=== PATIENT | female | born 1965 | race Caucasian/White ===

== ENCOUNTER → 2017-07-11 | Outpatient (CLI) | payer OTHER ==
--- NOTE | 2017-07-14 07:24 | MM ---
Reason for exam: screening (asymptomatic). Last mammogram was performed 1 year and 6 months ago. History: Patient has history of other cancer at age 47. Family history of premenopausal breast cancer in paternal cousin at age 36. Took hormonal contraceptives for 9 years beginning at age 20. Physical Findings: A clinical breast exam by your physician is recommended on an annual basis and results should be correlated with mammographic findings. MG Screening Mammo w CAD Bilateral CC and MLO view(s) were taken. Prior study comparison: January 01, 2016, bilateral MG screening mammo w CAD. October 10, 2014, bilateral MG screening mammo w CAD. There are scattered fibroglandular densities. There is no discrete abnormality. No significant changes when compared with prior studies. ASSESSMENT: Negative, BI-RAD 1 RECOMMENDATION: Routine screening mammogram of both breasts in 1 year.
== END | disposition home or self-care (01) ==
LOC: RADMAMWWP 09:05
PROVIDERS: ATTEND Obstetrics & Gynecology
DX: Z12.31 Encounter for screening mammogram for malignant neoplasm of breast (principal)

== ENCOUNTER → 2018-08-14 | Outpatient (CLI) | payer BC ==
[2018-08-14 09:33] LABS: HCT 43.5 % (34.0-46.0); HGB 14.3 gm/dL (11.4-16.0); MCHC 32.8 g/dL (31.0-37.0); MCV 97.6 fL (80.0-100.0); Mean Platelet Volume 6.1; Platelet Count 311 k/uL (150-450); RBC 4.46 m/uL (3.80-5.40); RDW 12.6 % (11.5-15.5); WBC 5.5 k/uL (3.8-10.6)
== END ==
LOC: LABWHC1 08:52
PROVIDERS: ATTEND Obstetrics & Gynecology
DX: E78.5 Hyperlipidemia, unspecified (principal)
CPT/HCPCS: 36415; 80061; 82947; 84439; 84443; 85027

== ENCOUNTER → 2019-02-04 | Outpatient (CLI) | payer BC ==
--- NOTE | 2019-02-04 09:32 | BD ---
EXAMINATION TYPE: Axial Bone Density DATE OF EXAM: 02/04/2019 COMPARISON: NONE CLINICAL HISTORY: Height: 5 FT 4 IN Weight: 180 FRAX RISK QUESTIONS: RISK FACTORS HISTORY OF: Active: YES Postmenopausal woman: AGE 51 MEDICATIONS: Additional Medications: OTC NEEDED Additional History: EXAM MEASUREMENTS: Bone mineral densitometry was performed using the Managed Methods System. Bone mineral density as measured about the Lumbar spine is: ----- L1-L4(G/cm2): 1.303 T Score Values are as follows: ----- L2: 0.6 ----- L3: 1.0 ----- L4: 1.7 ----- L1-L4: 1.0 BASELINE Bone mineral density about the R hip (g/cm2): 1.031 Bone mineral density about the L hip (g/cm2): 0.952 T Score values are as follows: -----R Neck: 0.0 -----L Neck: -0.6 -----R Total: 0.7 -----L Total: 0.0 BASELINE IMPRESSION: Normal (Values between +1 and -1 indicate normal bone mass). Consider repeating this study in 5 year s or sooner if there is some new clinical indication. NOTE: T-SCORE=SD OF THE YOUNG ADULT MEAN.
--- NOTE | 2019-02-05 11:12 | MM ---
Reason for exam: screening (asymptomatic). Last mammogram was performed 1 year and 7 months ago. History: Patient is postmenopausal and has history of other cancer at age 47. Family history of premenopausal breast cancer in paternal cousin at age 36. Took hormonal contraceptives for 9 years beginning at age 20. Physical Findings: A clinical breast exam by your physician is recommended on an annual basis and results should be correlated with mammographic findings. MG Screening Mammo w CAD Bilateral CC and MLO view(s) were taken. Prior study comparison: July 11, 2017, bilateral MG screening mammo w CAD. January 01, 2016, bilateral MG screening mammo w CAD. The breast tissue is heterogeneously dense. This may lower the sensitivity of mammography. No significant changes when compared with prior studies. ASSESSMENT: Negative, BI-RAD 1 RECOMMENDATION: Routine screening mammogram of both breasts in 1 year.
== END | disposition home or self-care (01) ==
LOC: RADMAMWWP 08:18
PROVIDERS: ATTEND Obstetrics & Gynecology
DX: Z12.31 Encounter for screening mammogram for malignant neoplasm of breast (principal); Z13.820 Encounter for screening for osteoporosis
CPT/HCPCS: 77067; 77080

== ENCOUNTER → 2019-10-28 | Outpatient (CLI) | payer BC ==
[2019-10-28 08:52] LABS: HGB 14.3 gm/dL (11.4-16.0); MCH 33.6 pg (25.0-35.0); MCHC 34.9 g/dL (31.0-37.0); MCV 96.5 fL (80.0-100.0); Mean Platelet Volume 6.7; Platelet Count 326 k/uL (150-450); RBC 4.25 m/uL (3.80-5.40); RDW 12.6 % (11.5-15.5); WBC 6.1 k/uL (3.8-10.6)
[2019-10-28 09:02] LABS: Appearance,Urine Clear (Clear); Bilirubin,Urine Negative (Negative); Blood,Urine Moderate (Negative); Color,Urine Yellow; Glucose,Urine (UA) Negative (Negative); Hyaline Casts,Urine 3 /lpf (0-2); Ketones,Urine Negative (Negative); Leukocyte Esterase,Urine Negative (Negative); Mucus,Urine Rare /hpf; Nitrite,Urine Negative (Negative); Protein,Urine Negative (Negative); RBC,Urine 1 /hpf (0-5); Specific Gravity,Urine 1.019 (1.001-1.035); Squamous Epithelial Cell,Urine 1 /hpf (0-4); Urobilinogen,Urine <2.0 mg/dL (<2.0); WBC,Urine 1 /hpf (0-5)
[2019-10-28 09:45] LABS: Erythrocyte Sedimentation Rate 14 mm/hr (0-20)
[2019-10-28 16:01] LABS: African American GFR (CKD) 122.3 (60.0-200.0); Albumin 4.7 g/dL (3.80-4.90); Albumin/Globulin Ratio 1.88 (1.60-3.17); Anion Gap 8.6 mmol/L (4.00-12.00); BUN/Creat Ratio 21.67 Ratio (12.00-20.00); Calcium 9.4 mg/dL (8.7-10.3); Carbon Dioxide 25.4 mmol/L (21.6-31.8); Chol/HDL Ratio 2.83; Globulin 2.5 g/dL (1.6-3.3); Non-African American GFR(CKD) 105.5 (60.0-200.0); Potassium 4.8 mmol/L (3.5-5.5); Total Bilirubin 0.6 mg/dL (0.3-1.2); Total Protein 7.2 g/dL (6.2-8.2)
[2019-10-28 16:10] LABS: T4, Free (Free Thyroxine) 1.2 ng/dL (0.80-1.80)
[2019-10-28 16:30] LABS: Anti-Smith Ab Interp NEGATIVE (NEGATIVE)
== END | disposition home or self-care (01) ==
LOC: LABWHC1 07:40
PROVIDERS: ATTEND Physician Assistant
DX: Z00.00 Encounter for general adult medical examination without abnormal findings (principal); R53.83 Other fatigue; L28.0 Lichen simplex chronicus; L30.1 Dyshidrosis [pompholyx]; D22.5 Melanocytic nevi of trunk; L82.1 Other seborrheic keratosis; B35.3 Tinea pedis; D22.72 Melanocytic nevi of left lower limb, including hip; I73.00 Raynaud's syndrome without gangrene; Z71.89 Other specified counseling; Z13.220 Encounter for screening for lipoid disorders
CPT/HCPCS: 36415; 80053; 80061; 81001; 82306; 84439; 84443; 85027; 85652; 86038; 86235

== ENCOUNTER → 2020-08-22 | Outpatient (CLI) | payer BC ==
--- NOTE | 2020-08-23 11:10 | ECHOF ---
Referral Reason:Z82.49 Family hx of ischemic heart disease/murmur MEASUREMENTS -------- HEIGHT: 162.6 cm WEIGHT: 80.7 kg BP: RVIDd: 2.8 cm (< 3.3) IVSd: 1.1 cm (0.6 - 1.1) LVIDd: 4.6 cm (3.9 - 5.3) LVPWd: 0.7 cm (0.6 - 1.1) IVSs: 1.3 cm LVIDs: 3.2 cm LVPWs: 1.2 cm LA Diam: 3.2 cm (2.7 - 3.8) LAESV Index (A-L): 27.47 ml/m Ao Diam: 2.6 cm (2.0 - 3.7) AV Cusp: 2.0 cm (1.5 - 2.6) MV EXCURSION: 17.007 mm (> 18.000) MV EF SLOPE: 112 mm/s (70 - 150) EPSS: 0.4 cm MV E Twin: 0.89 m/s MV DecT: 135 ms MV A Twin: 0.66 m/s MV E/A Ratio: 1.36 RAP: 5.00 mmHg RVSP: 16.78 mmHg FINDINGS -------- Sinus rhythm. This was a technically good study. LV size, wall thickness and systolic function are normal, with an EF greater than 55%. The left richelle tricular size is normal. The right ventricle is normal in size. The left atrial size is normal. Normal LA size by volume 22+/-6 ml/m2. The right atrial size is normal. The aortic valve is trileaflet, and appears structurally normal. No aortic stenosis or regurgitation. Mild mitral regurgitation is present. Mild tricuspid regurgitation present. Right ventricular systolic pressure is normal at < 35 mmHg. There is no pulmonic regurgitation present. The aortic root size is normal. There is no pericardial effusion. CONCLUSIONS -------- 1. LV size, wall thickness and systolic function are normal, with an EF greater than 55%. 2. The left ventricular size is normal. 3. The right ventricle is normal in size. 4. The left atrial size is normal. 5. Normal LA size by volume 22+/-6 ml/m2. 6. The right atrial size is normal. 7. Mild mitral regurgitation is present. 8. Mild tricuspid regurgitation present. 9. There is no pulmonic regurgitation present. 10. The aortic root size is normal. 11. There is no pericardial effusion. COVERER: Nuvia Villa RDCS
== END | disposition home or self-care (01) ==
LOC: RADECHMAIN 15:14
PROVIDERS: ATTEND Internal Medicine
DX: Z13.6 Encounter for screening for cardiovascular disorders (principal); I08.1 Rheumatic disorders of both mitral and tricuspid valves; Z82.49 Family history of ischemic heart disease and other diseases of the circulatory system
CPT/HCPCS: 93306

== ENCOUNTER → 2020-08-23 | Outpatient (CLI) | payer BC ==
--- NOTE | 2020-08-28 13:33 | MM ---
Reason for exam: screening (asymptomatic). Last mammogram was performed 1 year and 7 months ago. History: Patient is postmenopausal and has history of other cancer at age 47. Family history of premenopausal breast cancer in paternal cousin at age 36 and breast cancer in sister at age 55. Took hormonal contraceptives for 9 years beginning at age 20. Physical Findings: A clinical breast exam by your physician is recommended on an annual basis and results should be correlated with mammographic findings. MG Screening Mammo w CAD Bilateral CC and MLO view(s) were taken. Prior study comparison: February 04, 2019, bilateral MG screening mammo w CAD. July 11, 2017, bilateral MG screening mammo w CAD. The breast tissue is heterogeneously dense. This may lower the sensitivity of mammography. There is no discrete abnormality. ASSESSMENT: Negative, BI-RAD 1 RECOMMENDATION: Routine screening mammogram of both breasts in 1 year.
== END | disposition home or self-care (01) ==
LOC: RADMAMWWP 12:26
PROVIDERS: ATTEND Obstetrics & Gynecology
DX: Z12.31 Encounter for screening mammogram for malignant neoplasm of breast (principal)
CPT/HCPCS: 77067

== ENCOUNTER → 2022-04-03 | Outpatient (CLI) | payer BC ==
--- NOTE | 2022-04-04 10:44 | MM ---
Reason for Exam: Screening (asymptomatic). Last mammogram was performed 1 year(s) and 8 month(s) ago. Patient History: Menarche at age 17. First Full-Term at age 30. Postmenopausal. Other cancer, age 47. Hormonal Contraceptives for 9 years from age 20 until age 29. Paternal cousin had breast cancer, age 36. Sister had breast cancer, age 55. Risk Values: [place] 5 year model risk: 2.0%. NCI Lifetime model risk: 14.5%. Prior Study Comparison: 07/11/2017 Bilateral Screening Mammogram, [facility]. 02/04/2019 Bilateral Screening Mammogram, [facility]. 08/23/2020 Bilateral Screening Mammogram, [facility]. Tissue Density: The breast tissue is heterogeneously dense. This may lower the sensitivity of mammography. Findings: Analyzed By CAD. Benign-appearing right axillary lymph nodes are redemonstrated. There is no suspicious group of microcalcifications or new suspicious mass in either breast. Overall Assessment: Negative, BI-RAD 1 Management: Screening Mammogram of both breasts in 1 year. A clinical breast exam by your physician is recommended on an annual basis and results should be correlated with mammographic findings. Electronically signed and approved by: Germain Devine M.D.
== END | disposition home or self-care (01) ==
LOC: RADMAMWWP 07:52
PROVIDERS: ATTEND Obstetrics & Gynecology
DX: Z12.31 Encounter for screening mammogram for malignant neoplasm of breast (principal); Z78.0 Asymptomatic menopausal state; Z80.3 Family history of malignant neoplasm of breast
CPT/HCPCS: 77067

== ENCOUNTER 2022-05-15 08:12 | Day surgery (SDC) | payer BC ==
[2022-05-10 11:41] VITALS: BMI 31.6
[~2022-05-15 08:12] MED LIST: LACTATED RINGERS 1,000 ML IV SCH
[2022-05-15 09:03] VITALS: TEMP 97.8
[2022-05-15] MEDS ORDERED: PROPOFOL 10 MG/ML 20 ML VIAL IV ONE (09:34)
--- NOTE | 2022-05-15 09:52 | P.PCN ---
Date of Procedure: 05/15/22 Procedure(s) Performed: BRIEF HISTORY: Patient is a 56-year-old pleasant white female scheduled for an elective colonoscopy as a part of evaluation of prior history of colon polyps PROCEDURE PERFORMED: Colonoscopy. PREOPERATIVE DIAGNOSIS: History of colon polyps. IV sedation per Anesthesia. PROCEDURE: After informed consent was obtained, the patient, was brought into the endoscopy unit. IV sedation was administered by Anesthesia under continuous monitoring. Digital rectal examination was normal. Initially the Olympus CF-160 flexible video colonoscope was then inserted in the rectum, gradually advanced into the cecum without any difficulty. Careful examination was performed as the scope was gradually being withdrawn. Ileocecal valve and the appendiceal orifice were visualized and appeared normal. Prep was excellent. Mucosa of the cecum, ascending colon, transverse colon, appeared normal. In the descending colon there was a 6 minute a polyp removed by snare polypectomy. Rest of the descending colon, sigmoid colon, and rectum appeared normal. In the rectum there was a 3 mm polyp removed by snare polypectomy. Scattered sigmoid diverticulosis seen. Retroflexion was performed in the rectum and no lesions were seen. The patient tolerated the procedure well. IMPRESSION: 6 mm descending colon polyp status post polypectomy 3 mm rectal polyp status post polypectomy Scattered sigmoid diverticulosis RECOMMENDATIONS: Findings of this examination were discussed with the patient as well as her family. She was advised to follow with the biopsy results. If the biopsy results adenoma she can have a repeat colonoscopy in 5 years.
[2022-05-15 10:15] VITALS: RESP 20
[2022-05-15 10:19] VITALS: BP 174/81; PULSE 53
== END 2022-05-15 10:38 | disposition home or self-care (01) ==
LOC: ORWHC2ENDO 08:12
PROVIDERS: ATTEND Internal Medicine Gastroenterology
DX: Z12.11 Encounter for screening for malignant neoplasm of colon (principal); K62.1 Rectal polyp; K63.5 Polyp of colon; K57.30 Diverticulosis of large intestine without perforation or abscess without bleeding; Z86.010 Personal history of colon polyps; I10 Essential (primary) hypertension; J45.909 Unspecified asthma, uncomplicated; M19.90 Unspecified osteoarthritis, unspecified site; Z87.891 Personal history of nicotine dependence
CPT/HCPCS: 88305; 45385; J2704

== ENCOUNTER → 2023-06-30 | Outpatient (CLI) | payer BC ==
--- NOTE | 2023-07-01 10:45 | MM ---
Reason for Exam: Screening (asymptomatic). Last mammogram was performed 1 year(s) and 2 month(s) ago. Patient History: Menarche at age 17. First Full-Term at age 30. Postmenopausal. Other cancer, age 47. Hormonal Contraceptives for 9 years from age 20 until age 29. Paternal cousin had breast cancer, age 36. Sister had breast cancer, age 55. Risk Values: Catarina 5 year model risk: 2.1%. NCI Lifetime model risk: 14.2%. Prior Study Comparison: 02/04/2019 Bilateral Screening Mammogram, [facility]. 08/23/2020 Bilateral Screening Mammogram, [facility]. 04/03/2022 Bilateral MG screening mammo w CAD, [facility]. Tissue Density: The breast tissue is heterogeneously dense. This may lower the sensitivity of mammography. Findings: Analyzed By CAD. There is no suspicious group of microcalcifications or new suspicious mass in either breast. Overall Assessment: Negative, BI-RAD 1 Management: Screening Mammogram of both breasts in [address] [facility] will attempt to contact patient to return for supplemental views and ultrasound if indicated. Patient should continue monthly self-breast exams. A clinical breast exam by your physician is recommended on an annual basis. This exam should not preclude additional follow-up of suspicious palpable abnormalities. Note on Catarina scores and lifetime risk: 1. A Catarina score greater than 3% is considered moderate risk. If this is the case, consider specialist referral to assess eligibility for a risk reducing agent. 2. If overall lifetime risk for the development of breast cancer is 20% or higher, the patient may qualify for future screening with alternating mammogram and breast MRI. Electronically signed and approved by: Sai Layton DO
== END | disposition home or self-care (01) ==
LOC: RADMAMWWP 08:39
PROVIDERS: ATTEND Obstetrics & Gynecology
DX: Z12.31 Encounter for screening mammogram for malignant neoplasm of breast (principal); Z78.0 Asymptomatic menopausal state; Z80.3 Family history of malignant neoplasm of breast
CPT/HCPCS: 77063; 77067

== ENCOUNTER → 2024-08-23 | Outpatient (CLI) | payer BC ==
--- NOTE | 2024-08-23 16:20 | BD ---
EXAMINATION TYPE: Axial Bone Density DATE OF EXAM: 08/23/2024 CLINICAL HISTORY: 58 years old Female. ICD-10 CODE: Z13.820 OSTEOPOROSIS Height: 63.5 Weight: 168.5 FRAX RISK QUESTIONS: Alcohol (3 or more units per day): no Family History (Parent hip fracture): no Glucocorticoids (More than 3mos): no (Ex: prednisone, prednisolone, methylprednisolone, dexamethasone, and hydrocortisone). History of Fracture in Adulthood: no Secondary Osteoporosis: 1. Type 1 Diabetes: no 2. Hyperthyroidism: no 3. Menopause before 45:no 4. Malnutrition: no 5. Chronic liver disease: no Rheumatoid Arthritis: no Current Tobacco Use: no RISK FACTORS HISTORY OF: Hip Fracture (Right/Left): no Spine Fracture: no History of Wrist Fracture: no Surgery to Spine/Hip(right/left)/Wrist (right/left): no MEDICATIONS: Thyroid Medications: no Osteoporosis Medications: no EXAM MEASUREMENTS: Bone mineral densitometry was performed using the rumr: turn off the lights System. Bone mineral density as measured about the Lumbar spine is: ----- L1-L4(G/cm2): 1.283 T Score Values are as follows: ----- L1: 0.3 ----- L2: 0.6 ----- L3: 1.5 ----- L4: 0.9 ----- L1-L4: 0.9 Z Score Values are as follows: ----- L1: 0.8 ----- L2: 1.1 ----- L3: 2.0 ----- L4: 1.5 ----- L1-L4: 1.4 Bone mineral density has: decreased -1.5 % since study of: 02/04/2019 Bone mineral density about the R hip (g/cm2): 1.051 Bone mineral density about the L hip (g/cm2): 1.02 T Score values are as follows: -----R Neck: -0.5 -----L Neck: -0.8 -----R Total: 0.3 -----L Total: 0.0 Z Score values are as follows: -----R Neck: 0.3 -----L Neck: 0.1 -----R Total: 0.8 -----L Total: 0.4 Bone mineral density has: decreased -2.9 % since study of: 02/04/2009 FRAX%s: The graph provided illustrates a 5.8% chance for a major osteoporotic fx and a 0.2% chance fo r the hips probability for fx in 10 years time. IMPRESSION: Normal (Values between +1 and -1 indicate normal bone mass). Consider repeating this study in 5 year s or sooner if there is some new clinical indication. NOTE: T-SCORE=SD OF THE YOUNG ADULT MEAN. [facility], , 08/23/2024 4:17 PM
--- NOTE | 2024-08-24 19:06 | MM ---
Reason for Exam: Screening (asymptomatic). Last mammogram was performed 1 year(s) and 2 month(s) ago. Patient History: Menarche at age 17. First Full-Term at age 30. Postmenopausal. Other cancer, age 47. Hormonal Contraceptives for 9 years from age 20 until age 29. Paternal cousin had breast cancer, age 36. Sister had breast cancer, age 55. Risk Values: Catarina 5 year model risk: 2.2%. NCI Lifetime model risk: 14.0%. Prior Study Comparison: 08/23/2020 Bilateral Screening Mammogram, [facility]. 04/03/2022 Bilateral MG screening mammo w CAD, [facility]. 06/30/2023 Bilateral MG 3D screening mammo w/cad, [facility]. Tissue Density: The breasts are heterogeneously dense, which may obscure small masses. Findings: Analyzed By CAD. There is no suspicious group of microcalcifications or new suspicious mass in either breast. Overall Assessment: Negative, BI-RAD 1 Management: Screening Mammogram of both breasts in 1 year. . Patient should continue monthly self-breast exams. A clinical breast exam by your physician is recommended on an annual basis. This exam should not preclude additional follow-up of suspicious palpable abnormalities. Note on Catarina scores and lifetime risk: 1. A Catarina score greater than 3% is considered moderate risk. If this is the case, consider specialist referral to assess eligibility for a risk reducing agent. 2. If overall lifetime risk for the development of breast cancer is 20% or higher, the patient may qualify for future screening with alternating mammogram and breast MRI. [facility], , 08/24/2024 7:03 PM. Electronically signed and approved by: Della Chavira M.D. Radiologist
== END | disposition home or self-care (01) ==
LOC: RADMAMWWP 08:21
PROVIDERS: ATTEND Obstetrics & Gynecology
CPT/HCPCS: 77063; 77067; 77080

== ENCOUNTER → 2024-09-13 | Outpatient (CLI) | payer BC ==
--- NOTE | 2024-09-13 14:26 | CT ---
EXAMINATION TYPE: CT urogram wo/w con DATE OF EXAM: 09/13/2024 2:01 PM COMPARISON: None CLINICAL INDICATION: Female, 58 years old with history of R31.29 OTHER MICROSCOPIC HEMATURIA; PH[facility], he maturia hx of TECHNIQUE: Urogram with imaging of the abdomen and pelvis. Coronal and sagittal reformats were performed. 2D and 3D reconstructions are performed to assist visualization of the urinary tract on a separate workstat ion. Contrast used:100 mL of Isovue 300 without and with IV Contrast, Oral contrast used: None. CT DLP: 2135 mGycm, Automated exposure control for dose reduction was used. FINDINGS: LOWER CHEST: No significant findings. GENITOURINARY: RIGHT KIDNEY AND URETER: No calculi. No hydronephrosis or hydroureter. No renal mass or other lesions . No urothelial lesions: no filling defect, dilation, stricture or wall thickening. LEFT KIDNEY AND URETER: No calculi. No hydronephrosis or hydroureter. No renal mass or other lesions. No urothelial lesions: no filling defect, dilation, stricture or wall thickening. URINARY BLADDER: REPRODUCTIVE: Unremarkable. ABDOMEN LIVER: Simple appearing right hepatic lobe cyst. GALLBLADDER AND BILE DUCTS: Unremarkable PANCREAS: Unremarkable. SPLEEN: Unremarkable. ADRENAL GLANDS: Unremarkable. STOMACH AND BOWEL: . No evidence of bowel obstruction. Scattered colonic diverticula. PERITONEUM: No evidence of pneumoperitoneum, free fluid, or adenopathy. VASCULATURE: No evidence of aortic aneurysm. MUSCULOSKELETAL: No acute osseous abnormalities LYMPH NODES: No gross evidence for lymphadenopathy. SOFT TISSUE/ABDOMINAL WALL: Unremarkable IMPRESSION: 1. No evidence of urolithiasis or renal/urothelial neoplasm. 2. Colonic diverticulosis. [facility], , 09/13/2024 2:24 PM
== END | disposition home or self-care (01) ==
LOC: RADCTMAIN 13:22
PROVIDERS: ATTEND Family Medicine
DX: K57.30 Diverticulosis of large intestine without perforation or abscess without bleeding (principal); R31.29 Other microscopic hematuria
CPT/HCPCS: 74178; 74400; Q9967